=== PATIENT | male | born 1945 | race Two or more races ===

== ENCOUNTER 2024-06-23 15:42 | Emergency (ER) | payer MEDICAID, SELFPAY ==
[2024-06-23] VITALS (12 sets, daily range): BP systolic 156–220; BP diastolic 79–98; PULSE 58–82; RESP 17–26; TEMP 36.6–37.2; O2SAT 93–100; BMI 30.2
--- NOTE | 2024-06-23 16:28 | XR_ITS ---
Examination: CT brain head without contrast. 2-D sagittal coronal reconstructions Date and time of exam:June 23, 2024 1633 hours INDICATIONS: Headache dizziness beginning 3 days ago CTDI: vol (mGy):46.5 DLP: (mGycm):973 Technique: Multiple CT axial sections of the brain have been obtained, 5 mm slice thickness. Contrast has not been administered. 2-D sagittal, coronal reconstructions have been obtained Low dose protocols were performed. One or more of the following dose reduction techniques were used; automated exposure control, adjustment of the mA and/or KV according to patient size, use of iterative reconstruction technique. Findings: Low density in the right cerebellar hemisphere measuring up to 4 cm in dimension with mass effect upon the fourth ventricle The ventricles are not enlarged Frontal horns are not shifted No acute hemorrhage Cranial vault intact IMPRESSION: Large area of low density in the right cerebellar hemisphere, differential would include edema secondary to neoplastic lesion as well as infarction, acute Recommend brain MRI MRA follow up pre and postcontrast
--- NOTE | 2024-06-23 16:28 | EDRME_ITS ---
Rapid Medical Screening Exam [facility] Arrival date/time: 06/23/24 1541 79-year-old male presents to the emergency department for complaints of headache which began today Chief Complaint: Headache Vital signs: Vital Signs Temperature 98.6 F 06/23/24 16:13 Pulse Rate 82 06/23/24 16:13 Respiratory Rate 18 06/23/24 16:13 Blood Pressure 201/88 H 06/23/24 16:13 Pulse Oximetry (%) 95 06/23/24 16:13 Oxygen Delivery Method Room Air 06/23/24 16:13
[2024-06-23 17:14] LABS: Basophils # (Auto) 0.1 Thou/mm3 (0.0-0.2); Basophils % (Auto) 1 % (0-2.5); Eosinophils # (Auto) 0.1 Thou/mm3 (0.0-0.5); Eosinophils % (Auto) 1 % (0-10); Hematocrit 45.1 % (41.0-53.0); Hemoglobin 15.7 g/dL (13.5-16.0); Immature Granulocytes % (Auto) 0 % (0-0); Immature Granulocytes Auto 0.01 Thou/mm3 (0.00-0.00); Lymphocytes # (Auto) 1.9 Thou/mm3 (1.0-4.8); Lymphocytes % (Auto) 26 % (10-50); Mean Corpuscular HGB Conc 34.8 g/dl (31.0-37.0); Mean Corpuscular Hemoglobin 30.5 pg (25.0-35.0); Mean Corpuscular Volume 88 fL (80-100); Monocytes # (Auto) 0.3 Thou/mm3 (0.0-0.8); Monocytes % (Auto) 4 % (0-12); Neutrophils # (Auto) 5.1 Thou/mm3 (1.8-7.7); Neutrophils % (Auto) 69 % (37-80); Nucleated Red Blood Cell % 0 /100 WBC (0); Platelet Count 126 Thou/mm3 (140-440); Red Blood Count 5.14 Miln/mm3 (4.50-5.90); White Blood Count 7.4 Thou/mm3 (3.8-10.6)
[2024-06-23 17:27] LABS: Alanine Aminotransferase 22 U/L (10-49); Albumin, Serum 4.5 gm/dL (3.4-4.8); Albumin/Globulin Ratio 1.6 (1.2-2.2); Alkaline Phosphatase 78 U/L (46-116); Anion Gap 7 (7-16); Aspartate Amino Transferase 26 U/L (0-34); BUN/Creatinine Ratio 10 Ratio (12-20); Bilirubin,Total 1.3 mg/dL (0.3-1.2); Blood Urea Nitrogen 14 mg/dL (9-23); Calcium 9.2 mg/dL (8.3-10.6); Calcium (Corrected) 9.2 mg/dL (8.5-10.1); Carbon Dioxide 24.6 mMol/L (20.0-31.0); Chloride 106 mMol/L (98-107); Creatinine (Component) 1.4 mg/dL (0.6-1.3); Estimated Creatinine Clearance 38.6 mL/min (>60); Globulin 2.9 gm/dL (2.3-3.5); Glucose 289 mg/dL (74-106); Osmolality,Calculated 287 (275-295); Potassium 4.2 mMol/L (3.4-5.1); Sodium 138 mMol/L (136-145); Total Protein 7.4 gm/dL (5.7-8.2); eGFR 51 See Note
--- NOTE | 2024-06-23 18:37 | PD.EDHA ---
ED Headache RME/HPI General Chief Complaint: Headache Stated Complaint: CHANG & DIZZINESS X1 DAY Time Seen by Provider: 06/23/24 18:35 Arrival date/time: 06/23/24 15:42 RME / HPI RME / HPI Narrative: 79-year-old male patient with significant history of CVA more than 5 years ago, hypertension, came in for evaluation regarding headache. Onset of symptoms since 3 PM yesterday as right-sided headache described as dull, severity moderate associated with dizziness. Patient denies any vomiting denies any slurring of speech denies any upper or lower extremity weakness. Patient is not taking any blood thinner. Patient is ambulatory. Related Data Allergies Allergy/AdvReac Type Severity Reaction Status Date / Time No Known Allergies Allergy Verified 06/23/24 15:46 Review of Systems Review of Systems Narrative Review of Systems: Review of system reviewed and within normal limits except mentioned in HPI ED Exam Narrative Physical exam: VITAL SIGNS: Reviewed. GENERAL APPEARANCE: Alert and interactive, follows commands, no acute distress, HEAD AND FACE: Non-traumatic. ENT: PERRL, pink conjunctivitis, eyelid no trauma, Mucous membrane moist. No nystagmus noted. NECK: Supple, nontender, no nuchal rigidity. CHEST: No tenderness, no crepitus, no paradoxical movement, no retractions. LUNGS: Clear, well ventilated, symmetric, no rales, no wheezing, no ronchi, no stridor, good breath sounds bilaterally. HEART: Regular rate, regular rhythm, no murmur, no gallops. ABDOMEN: Soft, positive bowel sounds, nondistended, no guarding, nontender, no rebound, no masses, RECTAL: Deferred. GENITAL: Deferred. NEUROLOGICAL: Gross motor function intact sensory function intact, Appropriate for age. [id number] test normal MUSCULOSKELETAL: low back nontender, full range of motion. EXTREMITIES: Nontender, full range of motion. SKIN: Color pink, dry, no rash, no lacerations, no abrasions, no contusions. LYMPHATICS: Deferred. Course Quality Measures none Orders Category Date Time Status EKG (ED ONLY) *Do not use* NOW Care 06/23/24 18:46 Completed Consult to Neurology / Tele-Neurology Stat Cons 06/23/24 18:[address] head/brain wo con Stat Exams 06/23/24 16:28 Completed EKG (ED Only) Stat Exams 06/23/24 18:45 Draft CBC Stat Lab 06/23/24 16:55 Completed CMP [Comprehensive Metabolic Panel] Stat Lab 06/23/24 16:55 Completed Drug Screen,Urine Stat Lab 06/23/24 20:08 Completed Partial Thromboplastin Time Stat Lab 06/23/24 19:40 Completed Prothrombin Time with INR Stat Lab 06/23/24 19:40 Completed Urinalysis, C/S if Indicated Stat Lab 06/23/24 19:55 Completed ACETAMINOPHEN w/COD 300-30 [Tylenol w/Cod #3] Med 06/23/24 23:11 Discontinued 1 tab PO X1 ONE Aspirin Med 06/23/24 20:30 Discontinued 325 mg PO X1 ONE Vital Signs Vital signs: Vital Signs Temperature 98.6 F 06/23/24 16:13 Pulse Rate 82 06/23/24 16:13 Respiratory Rate 18 06/23/24 16:13 Blood Pressure 201/88 H 06/23/24 16:13 Pulse Oximetry (%) 95 06/23/24 16:13 Oxygen Delivery Method Room Air 06/23/24 16:13 Headache MDM Narrative MDM Narrative:: 79-year-old male patient with significant history of CVA more than 5 years ago, hypertension, came in for evaluation regarding headache. Onset of symptoms since 3 PM yesterday as right-sided headache described as dull, severity moderate associated with dizziness. Patient denies any vomiting denies any slurring of speech denies any upper or lower extremity weakness. Patient is not taking any blood thinner. I initially consult Dr Kang, neurology on-call, who reviewed the CT scan and told me to do teleneurology consult. 7:30 PM, teleneurology consult was initiated. Patient GCS is 15, NIHS is 0 Laboratory workup came back unremarkable. CT scan of the head showed large hypodensity noted on the right cerebellar hemisphere with edema. I spoke with teleneurologist who recommended transfer to higher level care with neurosurgery on-call. Because of the location of the hypodensity and to rule out malignancy also. Patient received aspirin 325 mg p.o. x 1 Plan of care discussed with the family who agrees to be transferred. I spoke with transfer center from [facility], who accepted the patient however later on the called asked that their CT scan is not working. I spoke with transfer center in [facility] pending acceptance Care transferred to Dr. Case for final disposition. 11:21 PM, on reevaluation patient is stable only complaint is mild headache. Still GCS is 15, no vomiting blood pressure was noted to be 156/82. Patient data External records reviewed:: None Clinical information provided by:: patient Social determinants that could affect healthcare access:: none Patient has the following chronic illnesses:: Hypertension history of stroke 5 years ago How is presenting disease/condition affected by chronic disease/condition?: exacerbated by Evaluation data The following diagnostics were reviewed and interpreted by me:: lab results, radiology exam(s) and EKG tracing(s) Lab and/or radiology exams considered but not ordered:: None Interpretation Summary: EKG showed sinus rhythm, ventricular rate of 61 bpm, no ST segment elevation depression noted. Medications / Prescriptions Medications or Prescriptions considered but not ordered:: None Medication administrations:: Medication Administration History Discontinued Medications Acetaminophen/Codeine Phosphate (Acetaminophen W/Cod 300-30 Tablet) 1 tab PO X1 ONE Stop: 06/23/24 23:12 Aspirin (Aspirin 325 Mg Tablet) 325 mg PO X1 ONE Stop: 06/23/24 20:31 Last Admin: 06/23/24 20:37 Dose: 325 mg Documented By: JE Tylenol with codeine and aspirin 325 mg p.o. Consultations Consultation(s) initiated? (list below): Yes Consultation #1 (Physician, Specialty, Details): Dr Kang, thank you Diagnosis Differential diagnosis headache: tension headache and subarachnoid hemorrhage Most likely diagnosis given after review of the tests above:: Hypodensity right cerebellar hemisphere Admission Indicated Admission indicated?: indicated (For transfer to higher level care) Admission Request Was there a request for admission?: No Disposition Plan Disposition Plan: Transfer Discharge Plan Prescriptions/Referrals Referrals: Yoseph Ordaz MD [Primary Care Provider] - In 1 week Problem List Clinical Impression: Headache Patient/Caregiver Discharge Instructions Print Language: Swedish
--- NOTE | 2024-06-23 18:45 | EKG_ITS ---
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
--- NOTE | 2024-06-23 19:26 | PC.NURSE ---
Case [id number]/23/2024 19:26:22 [facility] Case # [id number] has been created.
[2024-06-23 20:05] LABS: Prothrombin Time 11.2 Seconds (9.0-12.2)
[2024-06-23 20:13] LABS: Collection Type, Urine Clean Catch; Squamous Epithelial Cell,Urine 0 /hpf (0-5); WBC,Urine 0 /hpf (0-5)
[2024-06-23 20:29] LABS: Amphetamine/Methamp Scrn,U Negative (Negative); Barbiturate Screen,Urine Negative (Negative); Benzodiazepines Screen,Urine Negative (Negative); Benzoylecgonine Screen, Ur Negative (Negative); Fentanyl Screen,Urine Negative (Negative); Opiate Screen,Urine Negative (Negative); THC Screen,Urine Negative (Negative)
--- NOTE | 2024-06-23 20:32 | PD.TNEURO ---
Tele Neuro Consultation Consultation Date 06/23/24 Most Recent Vital Signs Last Vital Signs Temp 98.3 F 06/23/24 19:57 Pulse 62 06/23/24 19:57 Resp 17 06/23/24 19:57 BP 196/92 H 06/23/24 19:57 Pulse Ox 100 06/23/24 19:57 O2 Del Method Room Air 06/23/24 19:57 Laboratory-Coagulation Panel PT 11.2 Seconds (9.0-12.2) 06/23/24 19:40 INR 1.0 (0.9-1.3) 06/23/24 19:40 APTT 28.0 Seconds (22.0-36.0) 06/23/24 19:40 Consultation Narrative [facility] TeleNeurology Consult Services Stat Consult Patient Name:???Guillermo oRgers Date of :???1945 Identification Number:??? Date of Service:???06/23/2024 19:26:22 Diagnosis:?G93.6 - Cerebral edema ?R51.9 - Headache, unspecified ?R42 - Dizziness/ Vertigo/ Giddiness Impression 79yo man with history of HTN, HLD, DM presents with headache and dizziness. NCCT shows large right region of cerebellar cerebral edema. Most likely this is stroke, but could be a mass based on appearance. He is >24hrs out and this is a completed stroke if it is stroke on CT thus not a candidate for neurointervention. There could be some risk of malignant edema given the size of this lesion but this is somewhat unlikely given patient's advanced age. Would recommend continuing aspirin, get MRI brain with and without contrast for further evaluation. If confirmed to be stroke needs stroke work up with echo and CTA head/neck. If a mass is confirmed neurosurgery evaluation would be needed. If MRI suggests increasing edema this may also necessitate neurosurgery evaluation. For these reasons it would be most recommended for patient to be transferred to facility with in house neurosurgery availability. Would do permissive HTn to <220/120 for BP for now and can be gradually reduced with oral medications later. Recommendations: Our recommendations are outlined below. Diagnostic Studies :MRI head with and without contrast Ideally would be transferred for in house neurosurgery availability. Antithrombotic Medication :Aspirin 81 mg PO daily Permissive hypertension, Antihypertensives with prn for first 24-48 hrs post stroke onset. If BP greater than 220/120 give Labetalol IV or Vasotec IV Nursing Recommendations :Neuro checks q4 hrs x 24 hrs and then per shift Head of bed 30 degrees Continue with Telemetry Consultations :Recommend Speech therapy if failed dysphagia screen Physical therapy/Occupational therapy DVT Prophylaxis :SCDs, Pneumatic Compression Metrics: Dispatch Time: 06/23/2024 19:26:22 Callback Response Time: 06/23/2024 19:26:41 Primary Provider Notified of Diagnostic Impression and Management Plan on: 06/23/2024 20:31:52 Chief Complaint: heaedache, dizzy History of Present Illness:Patient is a 79 year old Female. 79yo man with history of HTN, HLD, DM presents with headache and dizziness. Translation assistance via dual role TILE LAYER/tech a bedside Ray in Mongolian. He reports these symptoms began around 8pm yesterday evening (24hrs ago) and have persisted. BP in the ED is elevated. He does take aspirin daily. He does report history of a stroke 4 years ago but does not recall any details about it. Denies any history of cancer. Past Medical History: ?Hypertension ?Diabetes Mellitus ?Hyperlipidemia Medications: No Anticoagulant use? Antiplatelet use:?Yes?aspirin Reviewed EMR for current medications Allergies:? Reviewed Social History: Drug Use: No Family History: There is no family history of premature cerebrovascular disease pertinent to this consultation ROS : 14 Points Review of Systems was performed and was negative except mentioned in HPI. Past Surgical History: There Is No Surgical History Contributory To Today?s Visit Examination: BP(193/97),?Pulse(61), 1A: Level of Consciousness - Alert; keenly responsive?+ 0 1B: Ask Month and Age - Both Questions Right?+ 0 1C: Blink Eyes & Squeeze Hands - Performs Both Tasks?+ 0 2: Test Horizontal Extraocular Movements - Normal?+ 0 3: Test Visual Marie - No Visual Loss?+ 0 4: Test Facial Palsy (Use Grimace if Obtunded) - Normal symmetry?+ 0 5A: Test Left Arm Motor Drift - No Drift for 10 Seconds?+ 0 5B: Test Right Arm Motor Drift - No Drift for 10 Seconds?+ 0 6A: Test Left Leg Motor Drift - No Drift for 5 Seconds?+ 0 6B: Test Right Leg Motor Drift - No Drift for 5 Seconds?+ 0 7: Test Limb Ataxia (FNF/Heel-Sullivan) - No Ataxia?+ 0 8: Test Sensation - Normal; No sensory loss?+ 0 9: Test Language/Aphasia - Normal; No aphasia?+ 0 10: Test Dysarthria - Normal?+ 0 11: Test Extinction/Inattention - No abnormality?+ 0 NIHSS Score:?0 NIHSS Free Text :?no clear dysmetria in legs or arms Spoke with :?Suzan DOMINGO This consult was conducted in real time using interactive audio and video technology. Patient was informed of the technology being used for this visit and agreed to proceed. Patient located in hospital and provider located at home/office setting. Patient is being evaluated for possible acute neurologic impairment and high probability of imminent or life - threatening deterioration.I spent total of 35 minutes providing care to this patient, including time for face to face visit via telemedicine, review of medical records, imaging studies and discussion of findings with providers, the patient and / or family. Dr Ming Rose [facility] For Inpatient follow-up with [facility] physician please call [facility] at . As we are not an outpatient service for any post hospital discharge needs please contact the hospital for assistance. If you have any questions for the [facility] physicians or need to reconsult for clinical or diagnostic changes please contact us via [facility] at .
--- NOTE | 2024-06-23 20:34 | PC.NURSE ---
[facility] CONTACTED FOR POSSIBLE NEUROSURGERY TRANSFER, SPOKE WITH OANH
[2024-06-23 20:36] LABS: Bilirubin,Urine Negative (Negative); Blood,Urine Negative (Negative); Clarity,Urine Clear (Clear/Hazy); Color,Urine Lt-Yellow (Lt Yel-Yel); Culture Indicated,Urine Not Indicated; Glucose, Urine 4+ (Negative); Ketones,Urine Negative (Negative); Leukocyte Esterase,Urine Negative (Negative); Nitrite,Urine Negative (Negative); Protein,Urine Negative (Neg - Trace); RBC,Urine 2 /hpf (0-3); Urobilinogen,Urine Negative mg/dL (0.0-1.0)
[2024-06-23] MEDS: Aspirin 325 MG TABLET PO (20:37)
--- NOTE | 2024-06-23 21:39 | PC.NURSE ---
SPOKE WITH DEMOND FROM THE [facility], [facility] STATES THEY CANT ACCEPT BECAUSE THEIR CT MACHINE IS DOWN AT [facility]
--- NOTE | 2024-06-23 21:41 | PC.NURSE ---
[facility] FAXED PAPERWORK FOR POSSIBLE NEUROSURGERY TRANSFER
[2024-06-23] MEDS: ACETAMINOPHEN w/COD 300-30 TABLET 1 TAB PO (23:20)
--- NOTE | 2024-06-23 23:28 | PC.NURSE ---
[facility] ACCEPTED ER TO ER FOR NEUROSURG DR FUNG AND CHERYL-TIFFANY, [phone] FOR REPORT
--- NOTE | 2024-06-23 23:32 | EDNOTE_ITS ---
Emergency Room Addendum Addendum Narrative: 2300: Care assumed from Suzan Peterson NP Past medical, surgical, social and family history reviewed. Vitals and home medications reviewed. Results and treatment plan discussed. I will assume the care of the patient at this time and will follow the patient, pending transfer. Please refer to the emergency department record for history and examination from initial visit. 2327: Dr. Severino, neurosurgeon from [facility], accepts the patient for transfer.
--- NOTE | 2024-06-23 23:54 | PC.NURSE ---
pts family at bedside. Pt denies worsening of sx. No focal deficit noted. Speech normal, face remains symet.
[2024-06-24] VITALS: BP 173/92; PULSE 63; RESP 19; O2SAT 95
[2024-06-24 00:28] VITALS: BP 173/92; PULSE 67; RESP 18; TEMP 36.8; O2SAT 96
[2024-06-24 00:55] VITALS: BP 190/91; PULSE 67; RESP 18; TEMP 36.7; O2SAT 97
--- NOTE | 2024-06-24 01:23 | PC.NURSE ---
Repoort given to [facility] transporting pt. Report call to [facility]N at [facility] ED. Pt stable.
== END 2024-06-24 01:03 | disposition short-term general hospital (02) ==
PROVIDERS: Nurse Practitioner Family; Nurse Practitioner Primary Care; Emergency Provider Emergency Medicine; PCP Family Medicine
DX: R51.9 Headache, unspecified (principal); R94.31 Abnormal electrocardiogram [ECG] [EKG]; I10 Essential (primary) hypertension; Z86.73 Personal history of transient ischemic attack (TIA), and cerebral infarction without residual deficits; Z75.1 Person awaiting admission to adequate facility elsewhere
CPT/HCPCS: 36415; 70450; 80053; 80307; 81001; 85025; 85610; 85730; 93005; 99285; A9270